=== PATIENT | male | born 1980 | race Caucasian/White ===

== ENCOUNTER 2021-06-30 16:05 | Emergency (ER) | payer BC | END 2021-06-30 17:30 | disposition home or self-care (01) | LOC: ER1 16:05 | DX: U07.1 COVID-19 (principal); Z88.8 Allergy status to other drugs, medicaments and biological substances | CPT/HCPCS: 71045; 99283 ==

== ENCOUNTER 2021-07-01 18:48 | Emergency (ER) | payer BC ==
[~2021-07-01] VITALS: Ht 172.7 cm; Wt 115.7 kg
== END 2021-07-01 22:05 | disposition home or self-care (01) ==
LOC: ER1 18:48
DX: U07.1 COVID-19 (principal); Z23 Encounter for immunization
CPT/HCPCS: 99284; M0243

== ENCOUNTER 2022-02-06 20:43 | Emergency (ER) | payer BC ==
[2022-02-06 21:43] LABS: HEMOGLOBIN 16.7 gm/dl (14.0-17.5); RED BLOOD COUNT 5.44 M/UL (4.20-5.50); WHITE BLOOD COUNT 7.8 K/UL (4.5-11.0)
[2022-02-06 22:08] LABS: BUN/CREATININE RATIO 16 (0-10)
== END 2022-02-06 23:38 | disposition home or self-care (01) ==
LOC: ER1 20:43
PROVIDERS: Physician Assistant Medical
DX: R10.9 Unspecified abdominal pain (principal); K21.9 Gastro-esophageal reflux disease without esophagitis; I10 Essential (primary) hypertension; Z85.528 Personal history of other malignant neoplasm of kidney; Z88.1 Allergy status to other antibiotic agents
CPT/HCPCS: 80053; 81001; 85025; 99284